=== PATIENT | male | born 1970 | race Two or more races ===

== ENCOUNTER → 2021-02-28 | Outpatient (CLI) | payer BC ==
--- NOTE | 2021-02-28 16:57 | KCIC ---
US RENAL BILAT History: Reason: FLANK PAIN / Spl. Instructions: / History: Comparison: None. Procedure: Transabdominal ultrasound images are obtained of the kidneys and bladder. Findings: Right kidney: measures 11.3 x 4.9 x 4.2 cm. Small hyperechoic right renal focus measures 6 mm. No hy dronephrosis. Left kidney: measures 10.5 x 5.0 x 4.0 cm. Normal cortical echotexture. Corticomedullary differentia tion is preserved. No hydronephrosis. Urinary bladder: No urinary bladder wall thickening. Bilateral ureteral jets not identified during ti me of imaging. IVC and aorta not well seen due to technique. IMPRESSION: 1. Small nonobstructing right intrarenal calculus. No hydronephrosis. Electronically signed by: Carlos Gutiérrez DO (02/28/2021 4:55 PM) [id number]
== END ==
LOC: KCIC US 14:03
PROVIDERS: ATTEND Internal Medicine
DX: N20.0 Calculus of kidney (principal)
CPT/HCPCS: 76770